=== PATIENT | female | born 1940 | race Caucasian/White ===

== ENCOUNTER → 2019-01-20 | Outpatient (CLI) | payer OTHER | END | disposition home or self-care (01) | LOC: RAH 13:50 | PROVIDERS: ATTEND Family Medicine | DX: I65.21 Occlusion and stenosis of right carotid artery (principal); I69.353 Hemiplegia and hemiparesis following cerebral infarction affecting right non-dominant side | CPT/HCPCS: 93880 ==

== ENCOUNTER → 2019-02-11 | Outpatient (CLI) | payer OTHER | END | disposition home or self-care (01) | LOC: EDUNIT# 02-04 11:00 → RAH 10:25 | PROVIDERS: ATTEND Family Medicine | DX: I70.90 Unspecified atherosclerosis (principal); I69.354 Hemiplegia and hemiparesis following cerebral infarction affecting left non-dominant side; G31.9 Degenerative disease of nervous system, unspecified | CPT/HCPCS: 70544; 70551 ==